=== PATIENT | male | born 2000 | race Caucasian/White ===

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

== ENCOUNTER 2022-12-09 15:41 | Emergency (ER) | payer OTHER ==
[~2022-12-09] VITALS: Ht 185.4 cm; Wt 90.7 kg
[~2022-12-09 15:41] MED LIST changes: +IBUP800 PO
[2022-12-09 19:45] VITALS: BP 120/73
[2022-12-09] MEDS ORDERED: METO10 PO (19:50)
[2022-12-09] MEDS ORDERED: LIDO700A20 TOP (19:50)
[2022-12-09] MEDS ORDERED: IBUP600 PO (19:50)
[2022-12-09] MEDS ORDERED: ACET500 PO (19:50)
[2022-12-09] MEDS ORDERED: Robaxin750 MG PO (19:50)
== END 2022-12-09 20:01 | disposition home or self-care (01) ==
LOC: ER 15:41
DX: S06.0X0D Concussion without loss of consciousness, subsequent encounter (principal); S16.1XXD Strain of muscle, fascia and tendon at neck level, subsequent encounter; S39.012D Strain of muscle, fascia and tendon of lower back, subsequent encounter; V89.2XXD Person injured in unspecified motor-vehicle accident, traffic, subsequent encounter; Z79.899 Other long term (current) drug therapy
CPT/HCPCS: 99283; A9270